=== PATIENT | female | born 1950 | race Caucasian/White ===

== ENCOUNTER 2018-06-09 10:13 | Inpatient (IN) | payer MEDICARE, OTHER ==
[~2018-06-09] VITALS: Ht 172.7 cm; Wt 137.0 kg
--- NOTE | ~2018-06-09 | EC ---
PATIENT:MARYJANE LAW DATE OF SERVICE: 06/09/18 SEX: F MEDICAL RECORD: [id number] DATE OF : [birth year] LOCATION:D.M2 D.212 AGE OF PATIENT: 67 ADMISSION DATE: 06/09/18 REFERRING PHYSICIAN: INTERPRETING PHYSICIAN: DUKE VELÁSQUEZ MD ECHOCARDIOGRAM REPORT ECHO CHARGES 4 ECHO COMPLETE Date: 06/10/18 CLINICAL DIAGNOSIS: SOB ECHOCARDIOGRAPHIC MEASUREMENTS (adult normal given) AC root (d.<3.7cm) 3.2 cm LV Septum d (<1.2 cm> 1.3 cm Valve Excursion 1.7 cm LV Septum (systole) 2.1 cm Left Atria (s.<4.0cm> 3.4 cm LVPW d(<1.2cm) 1.4 cm RV (d.<2.3cm) 2.3 cm LVPW (sytole) 2.3 cm LV diastole(<5.6CM) 5.2 cm MV E-F(>70mm/sec) cm LV systole 3.4 cm LVOT Diameter 2.0 cm MV exc.(>10mm) cm Est.ejection fraction (50-75%) % DOPPLER: LVIT cm/sec A 166 cm/sec E 137 cm/sec LA cm/sec RVSP 39.0 mmHg LVOT 150 cm/sec AOP1/2T m/s Asc. Ao 207 cm/sec RVOT 87.0 cm/sec RA cm/sec PA 107 cm/sec AV Gradient Peak 17.1 mmHg AV Mean 8.2 mmHg AV Area 2.3 cm MV Gradient Peak 14.2 mmHg MV Mean 5.4 mmHg MV Area cm COMMENTS: Knot Bumper: Dioni SMITHOE Carpet Installation Specialist: 1 Dr. Velásquez TAPE# PACS Pericardial Effusion N DATE OF SERVICE: 06/10/2018 PROCEDURE: Echocardiogram. FINDINGS: 1. Left ventricular chamber size is within normal limits. Left ventricular systolic function is normal. Overall ejection fraction estimated at 55%. 2. Left atrium, right atrium, and right ventricle chamber sizes are within normal limits. 3. Valvular structures have normal structure and motion. ECHOCARDIOGRAM REPORT [id number] MARYJANE LAW 4. Doppler interrogation reveals only trace tricuspid regurgitation, no other valvular insufficiency or stenosis. Pulmonary systolic pressure is estimated 39 mmHg. 5. No evidence of pericardial effusion or left ventricular thrombus. TRANSINT:[id number] Voice Confirmation ID: [id number] DOCUMENT ID: [id number] DUKE VELÁSQUEZ MD at 1616 CC: [id number] DICTATION DATE: 06/10/18 1257 BOXER OPERATOR: 06/10/18 1304 ADM IN [facility] [address] [place] [address]
--- NOTE | ~2018-06-09 | CN ---
PATIENT NAME:MARYJANE LAW MEDICAL RECORD: [id number] : 48 LOCATION:. D.2128 ADMIT DATE: 06/09/18 ACCOUNT: [id number] CONSULTING PHYSICIAN: DUKE SCHAEFFER MD REFERRING PHYSICIAN: LUIZ GUTIERREZ MD DATE OF CONSULTATION: 06/10/2018 CARDIOLOGY CONSULTATION DIAGNOSES: 1. Non-Q-wave myocardial infarction. 2. Shortness of breath, dyspnea on exertion. 3. Diabetes. 4. Hypertension. 5. Hyperlipidemia. 6. Pneumonia. HISTORY OF PRESENT ILLNESS: Ms. Law presents with shortness of breath, dyspnea on exertion, really only for the past 1-2 days prior to admission, but her troponin is positive. She has been having some chest pain. She is a longstanding diabetic of 30 years. She has hypertension and hyperlipidemia. She was diagnosed with pneumonia, is being treated for pneumonia. PHYSICAL EXAMINATION: GENERAL APPEARANCE: Well-nourished, well-developed, appears stated age. Level of distress, comfortable. PSYCHIATRIC: Mental status, alert, normal affect. Orientation, oriented to time, place and person. EYES: Lids and conjunctiva, noninjected. No discharge, no pallor. ENT: Lips, teeth, gums, normal dentition. Oropharynx, no cyanosis, no pallor. NECK: Carotid arteries, bilateral normal upstroke, no bruits, no thrills. JUGULAR VEINS: No jugular venous pressure or distention. CERVICAL LYMPH NODES: Nontender, nonenlarged. THYROID: Not enlarged. Nontender. No nodules. LUNGS: Respiratory effort, unlabored. CHEST: Normal curvature. No thoracic deformity. No chest wall tenderness. Percussion, resonant. Auscultation, clear. No wheezes, no rales, no rhonchi. CARDIOVASCULAR: Precordial exam, nondisplaced. No heaves or pericardial thrills. Rate and rhythm, regular. Heart sounds, normal S1, normal S2. No S3, no gallop, no rub. Systolic murmur, not heard. Diastolic murmur, not heard. EXTREMITIES: No cyanosis, no edema. Peripheral pulses, full and equal in all extremities, except as noted. No bruits appreciated. ABDOMEN: Soft, nondistended. Normal aorta. No bruit. Nontender. No masses. Liver, nontender, no hepatomegaly. Spleen, nontender, no splenomegaly. MUSCULOSKELETAL: No joint tenderness. No joint swelling. No erythema. NEUROLOGICAL: Normal gait, normal strength, normal tone. SKIN: Warm and dry. REVIEW OF SYSTEMS: The patient reports easy bruising but reports no swollen glands. The patient reports no fever, no night sweats, no significant weight gain, no significant weight loss. No significant exercise tolerance. The patient reports no dry eyes, no irritation, no vision change. Patient reports no difficulty hearing and no ear pain. Patient reports no frequent nose bleeds or nose and sinus problems. Patient reports on arm pain on exertion. No shortness of breath while lying down. No history of heart murmur. Patient CONSULT REPORT [id number] MARYJANE LAW reports no cough, no wheezing or coughing up blood. Patient reports no abdominal pain, no vomiting. Normal appetite. No diarrhea and not vomiting blood. No nausea and no constipation. Patient reports no incontinence. No difficulty urinating. No hematuria. No increased frequency. Patient reports no muscle aches. No weakness, no arthralgias, no back pain. No swelling of the extremities. Patient reports no abnormal mole, no jaundice, no rashes. Reports no loss of consciousness. No weakness and no numbness. No seizures, dizziness, or headaches. The patient reports no depression, no sleep disturbance, feeling safe in a relationship and no alcohol abuse. Patient reports on fatigue. Reports no runny nose or sinus pressure. No itching, no hives, and no frequent sneezing. OVERALL IMPRESSION: Non-Q-wave myocardial infarction. With her risk factors, most likely she has hemodynamically significant coronary artery disease. She had an echocardiogram, which shows a normal ejection fraction. Her hyperlipidemia is under control with Crestor. She is on valsartan for blood pressure; however, remains tachycardic. Her blood pressure is overall under good control. We will add Lopressor, decreasing her valsartan and proceed with coronary angiography prior to hospital discharge. Further care depends upon the findings of the angiography. TRANSINT:[id number] Voice Confirmation ID: [id number] DOCUMENT ID: [id number] DUKE SCHAEFFER MD at 1616 CC: [id number] DICTATION DATE: 06/10/18 3893 NITRIC ACID CONCENTRATOR OPERATOR: 06/10/18 1512 ADM IN [place] [id number] [place] [address]
--- NOTE | ~2018-06-09 | HEMODYNAMI ---
PATIENT:MARYJANE LAW MEDICAL RECORD: [id number] : 48 LOCATION:[facility] D2128 ADMISSION DATE: 06/09/18 Generatedon:06/13/20189:08 Patient name: MARYJANE LAW Patient #: [id number] SSN: DO B: 1950 Date of study: 06/13/2018 Page: Of Hemodynamic Procedure Report Patient Data Patient Demographics Procedure consent was obtained First Name: MARYJANE Gender: Female Last Name: ANI : 1950 Patient #: [id number] Age: 67 year(s) Race: Unknown Additional ID: [id number] Contact details Address: [address] [place] [address] [address] State: [place] City: [facility] Zip code: [address] Admission Admission Data Admission Date: 06/09/2018 Admission Time: 16:08 Room #: D.2128 Procedure Procedure Types Cath Procedure Diagnostic Procedure LHC LHC w/Coronaries Procedure Description Procedure Date Procedure Date: 06/13/2018 Procedure Start Time: 8:57 Procedure End Time: 9:04 Procedure Staff Name Function Enrique Velásquez MD Performing Physician Carey Sandy RT Monitor Avelino Wolff RN Nurse Lisa Angel RT Scrub Procedure Data Cath Procedure Fluoroscopy Diagnostic fluoroscopy Total fluoroscopy Time: 1.3 time: 1.3 min min Diagnostic fluoroscopy Total fluoroscopy dose: 610 dose: 610 mGy mGy Contrast Material Contrast Material Type Amount (ml) Isovue 300 42 Entry Location Entry Primary Successful Side Size Upsize Upsize Entry Closure Underwood ccessful Closure Location (Fr) 1 (Fr) 2 (Fr) Remarks Device Remarks Radial Right 6 Fr Mechanical artery Short Compression Estimated blood loss: 5 ml Diagnostic catheters Device Type Used For End Catheter Placement DIAGNOSTIC [place] 110cm 5 Multi-vessel Fr catheter ([id number]) Angiography Procedure Complications No complications Procedure Medications Medication Administration Route Dosage Oxygen etCO2 Nasal cannula 2 l/min Heparin Flush Bag added to field 2 bags (1000units/500ml NS) 0.9% NaCl I.V. 100 ml/hr Radial Cocktail added to field 1 syringe (Verapomil 2mg/Nitro 400mcg/Heparin 1500units) Fentanyl I.V. 50 mcg Versed I.V. 1 mg Fentanyl I.V. 50 mcg Versed I.V. 1 mg Radial Cocktail I.A. 1 syringe (Verapomil 2mg/Nitro 400mcg/Heparin 1500units) Hemodynamics Rest Heart Rate: 61 (bpm) Pressure Samples Time Site Value (mmHg) Purpose Heart Use Rate(bpm) 9:00 LV 33/20,30 Snapshot 69 Snapshots Pre Cath Intra NCS Post Cath Vital Signs Time Heart Resp SPO2 etCO2 NIBP (mmHg) Rhythm Pain Sedation Rate (ipm) (%) (mmHg) Status Level (bpm) 8:48:48 62 18 96 32.9 86/50(75) NSR 0 (11) 10(A) , No pain 8:52:45 61 18 96 30.6 104/74(97) NSR 0 (11) 10(A) , No pain 8:57:48 61 18 95 32.9 161/67(126) NSR 0 (11) 10(A) , No pain 9:02:08 67 17 95 34.4 144/68(88) NSR 0 (11) 10(A) , No pain 9:06:45 61 21 92 34.4 142/63(104) NSR 0 (11) 10(A) , No pain Medications Time Medication Route Dose Verified Delivered Reason Notes Effectiveness by by 8:47:55 Oxygen etCO2 2 l/min Enrique You Per Nasal Didier Wolff RN physician cannula 8:48:04 Heparin Flush added 2 bags Enrique You used for Bag to Didier Wolff RN procedure (1000units/500ml field NS) 8:48:12 0.9% NaCl I.V. 100 Enrique You Per ml/hr Didier Wolff RN physician 8:48:20 Radial Cocktail added 1 Enrique You used for (Verapomil to syringe Didier Wolff RN procedure 2mg/Nitro field 400mcg/Heparin 1500units) 8:52:17 Fentanyl I.V. 50 mcg Enrique You for sedation Didier Wolff RN 8:52:23 Versed I.V. 1 mg Enrique You for sedation Didier Wolff RN 9:00:16 Fentanyl I.V. 50 mcg Enrique You for sedation Didier Wolff RN 9:00:20 Versed I.V. 1 mg Enrique You for sedation Didier Wolff RN 9:02:26 Radial Cocktail I.A. 1 Enrique Nunez for (Verapomil syringe Didier Velásquez MD vasodilation 2mg/Nitro 400mcg/Heparin 1500units) Procedure Log Time Note 8:20:39 Carey Sandy RT(R) sent for patient. Start room use. 8:35:38 Diagnostic Cath status Elective 8:35:41 Time tracking: Regular hours (M-F 7:00 - 5:00) 8:35:47 Plan of Care:Hemodynamics will remain stable., Cardiac rhythm will remain stable., Comfort level will be maintained., Respiratory function will remain adequate., Patient/ family verbilizes understanding of procedure., Procedure tolerated without complication., Recovers from procedure without complications.. 8:36:01 Patient received from Med II to CCL 2 Alert and oriented. Tansferred to table in Supine position. 8:36:11 Warm blankets applied, and marie hugger turned on for patient comfort. 8:36:20 Correct patient and procedure confirmed by team. 8:36:29 H&P Date Dictated: 06/12/2018 Within 30 days and on chart., H&P Addendum completed by physician on day of procedure. (MUST COMPLETE FOR ALL OUTPATIENTS). 8:36:31 Pre-procedure instructions explained to patient. 8:36:35 Family in patients room. 8:36:37 Patient NPO since Midnight. 8:47:36 Snore? Yes 8:47:37 Sleep apnea? No 8:47:38 Vital chart was started 8:47:41 Patient diabetic? Yes. 8:47:46 If diabetic: On Metformin? Yes 8:47:48 If on Metformin: Last Dose? 06/10/2018 8:47:52 Deviated septum? No 8:47:52 Opens mouth fully? Yes 8:47:53 Sticks out tongue? Yes 8:47:55 Oxygen 2 l/min etCO2 Nasal cannula was administered by Avelino Wolff RN; Per physician; 8:47:55 Airway obstruction? No ? 8:47:58 Dentures? Yes in 8:48:04 Heparin Flush Bag (1000units/500ml NS) 2 bags added to field was administered by Avelino Wolff RN; used for procedure; 8:48:12 0.9% NaCl 100 ml/hr I.V. was administered by Avelino Wolff RN; Per physician; 8:48:20 Radial Cocktail (Verapomil 2mg/Nitro 400mcg/Heparin 1500units) 1 syringe added to field was administered by Avelino Wolff RN; used for procedure; 8:49:38 Pre procedure: right dorsailis pedis pulse 1+ Palpable, but thready & weak; easily obliterated 8:49:41 Modified Dom's test Ulnar < 7 seconds 8:49:43 Patient pain scale 0/10 ?. 8:49:53 IV patent on arrival in right hand with 0.9% NaCl at O. 8:49:56 Lab results completed and on chart. 8:50:00 Right Radial & Right Groin area was prepped with chlora-prep and draped in sterile fashion 8:50:01 Alarms reviewed by R. N. 8:50:02 Sharps counted by scrub and verified by R.N. 8:50:06 Signed procedure consent form obtained from patient. 8:50:08 ECG and BP/O2 sat monitors applied to patient. 8:50:13 Rhythm: sinus rhythm 8:50:14 Full Disclosure recording started 8:50:19 Is patient on blood thinner?No 8:51:57 --------ALL STOP TIME OUT------ 8:51:57 Final Timeout: patient, procedure, and site verified with staff and physician. All members of the team are in agreement. 8:51:59 Right Radial & Right Groin site verified by team. 8:52:02 Physical assessment completed. ASA score P 2 - A patient with mild systemic disease as per Enrique Velásquez MD. 8:52:05 Sedation plan: IV Moderate Sedation Medication:Versed, Fentanyl 8:52:12 Use device set Radial Dx or PCI 8:52:16 Tegaderm 4 x 4 (1626W) opened to sterile field. 8:52:17 Fentanyl 50 mcg I.V. was administered by Avelino Wolff RN; for sedation; 8:52:17 ACIST Manifold (40156) opened to sterile field. 8:52:19 ACIST Hand Control (64589) opened to sterile field. 8:52:22 ACIST Syringe (92718) opened to sterile field. 8:52:22 Medline Cath Pack ([id number]) opened to sterile field. 8:52:23 Versed 1 mg I.V. was administered by Avelino Wolff RN; for sedation; 8:52:23 Bag Decanter (2002S) opened to sterile field. 8:52:23 DIAGNOSTIC WIRE .035 260cm J wire (996325) opened to sterile field. 8:52:24 MBrace Wrist Support ([id number]) opened to sterile field. 8:52:28 SHEATH 6Fr Prelude Radial ([id number]) opened to sterile field. 8:57:02 Procedure started. 8:57:07 Local anesthetic to right radial artery with Lidocaine 2% by Enrique Velásquez MD.INITIAL ACCESS ONLY 8:57:31 A 6 Fr Short sheath was inserted into the Right Radial artery 8:57:53 Baseline sample Acquired. 8:59:02 A DIAGNOSTIC [place] 110cm 5 Fr catheter (606842) was advanced over the wire and used for Multi-vessel Angiography. 9:00:16 Fentanyl 50 mcg I.V. was administered by Avelino Wolff RN; for sedation; 9:00:20 Versed 1 mg I.V. was administered by Avelino Wolff RN; for sedation; 9:00:53 LV hemodynamics recorded. 9:00:59 LV gram done using IKRK 9:01:02 Injector settings: Ml/sec: 5, Volume: 15, 9:01:07 EF : 55 % 9:01:16 LCA angiography performed. 9:01:43 Injector settings: Ml/sec: 3, Volume: 6, 9:02:26 Radial Cocktail (Verapomil 2mg/Nitro 400mcg/Heparin 1500units) 1 syringe I.A. was administered by Enrique Velásquez MD; for vasodilation; 9:02:54 RCA angiography performed. 9:02:57 Injector settings: Ml/sec: 3, Volume: 6, 9:03:12 Catheter removed. 9:03:25 Sheath removed intact; hemostasis achieved with Mechanical Compression to the Right Radial artery. 9:03:27 Procedure ended.(Physican Out) 9:03:46 Fluoroscopy time 01.30 minutes. 9:03:50 Fluoroscopy dose: 610 mGy 9:03:50 Flurop Dose total: 610 9:03:54 Contrast amount:Isovue 300 42ml. 9:03:55 Sharps counted by scrub and verified by R.N. 9:03:58 TR band inflated with 10cc of air. 9:03:59 Insertion/operative site no bleeding no hematoma. 9:04:05 Post right radial artery:stable 9:04:06 Post Procedure Pulses reassessed and unchanged 9:04:09 Post procedure rhythm: unchanged. 9:04:11 Estimated blood loss: 5 ml 9:04:12 Post procedure instruction explained to patient.Patient verbalizes understanding. 9:04:13 Patient needs reinforcement of post procedure teaching. 9:04:23 Procedure type changed to Cath procedure, Diagnostic procedure, LHC, LHC w/Coronaries 9:04:23 Procedure and supply charges have been captured, reviewed, submitted and are correct. 9:04:27 Procedure Complication : No complications 9:04:29 Vital chart was stopped 9:04:30 See physician's report for complete and final results. 9:04:39 Report given to Med II. 9:04:41 Patient transfered to Med II with Stretcher. 9:04:44 Procedure ended. 9:04:44 Full Disclosure recording stopped 9:04:48 End room use (Document Last) 9:05:03 TR BAND Large ([id number]) opened to sterile field. Device Usage Item Name Manufacture Quantity Catalog Number Hospital Part Current M inimal Lot# / Charge Number Stock Stock Serial# Code Tegaderm 4 x 4 3M 1 [id number] [id number] 5 (1626W) ACIST Manifold Acist 1 43578 565202 755675 169581 5 (94098) [employer] ACIST Hand Acist 1 17783 693291 240501 303707 5 Control (88213) [employer] ACIST Syringe Acist 1 78584 437556 847968 215499 2 0 (11880) [employer] Inc Medline Cath Cardinal 1 [id number] 043313 [address] [facility] ([id number]) Bag Decanter Microtek 1 877589 33967 996382 5 () Medical Inc. DIAGNOSTIC WIRE [facility] [place] 1 592638 803207 694764 078796 3 0 .035 260cm J wire (592794) MBrace Wrist Advanced 1 140-0250-00 794471 16424 040582 5 Support Vascular ([id number]) Dynamics SHEATH 6Fr Merit 1 [id number] 095588 897770 354054 5 Prelude Radial Medical ([id number]) DIAGNOSTIC Terumo 1 40-2939 517256 512306 772689 5 [place] 110cm 5 Fr catheter (751034) TR BAND Large Terumo 1 [id number] 574671 605317 534943 4 0 ([id number]) Signature Audit Bellona Stage Time Signature Unsigned Intra-Procedure 06/13/2018 Carey Sandy 9:07:56 AM RT(R) Signatures Monitor : Carey Sandy RT Signature : Date : Time : [place] [id number] [facility] [place] [address]
--- NOTE | ~2018-06-09 | OP ---
PATIENT NAME: MARYJANE LAW MEDICAL RECORD: [id number] :48 LOCATION:D.M2 D.2128 ADMISSION DATE:06/09/18 SURGEON: DUKE SCHAEFFER MD DATE OF OPERATION: 06/13/2018 DATE OF SERVICE: 06/13/2018 PROCEDURES: 1. Left heart catheterization. 2. Selective coronary angiography. 3. Left ventriculogram. INDICATION: Increased troponin. PROCEDURE IN DETAIL: After informed consent was obtained and after a detailed description of the risks, benefits as well as alternative therapies, the patient elected to proceed with angiogram and heart catheterization. The right radial area was prepped and draped in normal sterile fashion. Right radial artery was cannulated via modified Seldinger technique with placement of 5-Chilean sheath. All catheters exchanged through this sheath. FINDINGS: The left ventriculogram was performed in standard 30-degree KIRK view, reveals good cardiac wall motion throughout all segments. Overall ejection fraction estimated at 60%. SELECTIVE CORONARY ANGIOGRAPHY: Left main, left anterior descending, left circumflex, right coronary artery are all smooth-walled vessels with no angiographic evidence of coronary artery disease. OVERALL IMPRESSION: 1. No angiographic evidence of coronary artery disease. 2. Normal left ventricular function. Her increased troponin was secondary to demand ischemia from the pneumonia and no coronary artery disease is present. No other cardiac workup or treatment is necessary. TRANSINT:[id number] Voice Confirmation ID: [id number] DOCUMENT ID: [id number] DUKE SCHAEFFER MD at 1823 CC: [id number] DICTATION DATE: 06/13/18904 REWARDS CONSULTANT: 06/13/18 0952 DIS IN 06/14/18 [place] [address]
[2018-06-09] MEDS ORDERED: NASCOBAL1 EACH NASAL (10:17)
[2018-06-09] MEDS ORDERED: LOZOL 2.5 MG T2.5 MG PO (10:18)
[2018-06-09] MEDS ORDERED: DIOVAN320 MG PO (10:19)
[2018-06-09] MEDS ORDERED: METFORMIN PO (10:20)
[2018-06-09] MEDS ORDERED: PIOGLITAZONE PO (10:20)
[2018-06-09] MEDS ORDERED: CRESTOR5 MG PO (10:20)
[2018-06-09 11:04] LABS: BASOPHILS 0.1 % (0-2); EOSINOPHILS 0 % (0-7); HEMATOCRIT 32.1 % (36.0-48.0); HEMOGLOBIN 10.7 g/dL (12-16); IMMATURE GRANULOCYTES 0.2 % (0-5); LYMPHOCYTES 6.2 % (15-50); MCH 28.6 pg (26.0-34.0); MCHC 33.3 g/dL (31.0-37.0); MCV 85.8 fL (80.0-100.0); MEAN PLATELET VOLUME 10.9 fL (7.4-10.4); MONOCYTES 3.8 % (2-11); NEUTROPHILS 89.7 % (40-80); PLATELET COUNT 220 10x3/uL (130-400); RBC 3.74 10x6/uL (4.00-5.40); RDW 14.4 % (11.5-14.5); WBC 8.2 10x3/uL (4.8-10.8)
[2018-06-09 11:25] LABS: ALBUMIN 2.9 g/dL (3.4-5.0); ANION GAP 13.3 mmol/L (8-16); BILIRUBIN - TOTAL 0.42 mg/dL (0.2-1.3); CARBON DIOXIDE 25.8 mmol/L (21.0-32.0); CREATININE - SERUM 1.6 mg/dL (0.6-1.3); POTASSIUM - SERUM 3.1 mmol/L (3.5-5.1); PROTEIN - SERUM 7.3 g/dL (6.4-8.2)
[2018-06-09 13:16] VITALS: BP 125/93
[2018-06-09 15:29] LABS: APPEARANCE HAZY (CLEAR); BILIRUBIN NEGATIVE (NEGATIVE); COLOR YELLOW (YELLOW); GLUCOSE NEGATIVE (NEGATIVE); KETONE NEGATIVE (NEGATIVE); NITRITE NEGATIVE (NEGATIVE); PROTEIN 1+ mg/dL (NEGATIVE); UROBILINOGEN NORMAL (NORMAL)
[2018-06-09 15:30] VITALS: BP 159/61
[2018-06-09 15:30] LABS: BACTERIA MODERATE /hpf (NONE SEEN); EPITHELIAL CELLS 0-5 /hpf (0-5); MUCUS <1+ /lpf (NONE SEEN); RED CELLS - URINE 0-5 /hpf (0-5); WHITE CELLS - URINE 0-5 /hpf (0-5)
[2018-06-09 16:34] LABS: CKMB 5.4 U/L (0.0-3.6)
[2018-06-09 16:35] LABS: CREATINE KINASE 2525 UL (21-215)
[2018-06-09 16:41] LABS: TROPONIN-I 0.072 ng/mL (0.000-0.060)
[2018-06-09 17:20] VITALS: BP 166/55
[2018-06-09 18:25] VITALS: BP 142/45
[2018-06-09 22:18] LABS: CKMB 4.7 U/L (0.0-3.6)
[2018-06-09 22:27] LABS: CREATINE KINASE 2310 UL (21-215)
[2018-06-09 22:28] LABS: TROPONIN-I 0.087 ng/mL (0.000-0.060)
[2018-06-10] VITALS (7 sets, daily range): BP systolic 103–145; BP diastolic 46–69; BMI 44.1
[2018-06-10 05:40] LABS: BASOPHILS 0.2 % (0-2); EOSINOPHILS 0 % (0-7); HEMATOCRIT 28.1 % (36.0-48.0); HEMOGLOBIN 9.4 g/dL (12-16); IMMATURE GRANULOCYTES 0.3 % (0-5); LYMPHOCYTES 7.9 % (15-50); MCH 28.3 pg (26.0-34.0); MCHC 33.5 g/dL (31.0-37.0); MCV 84.6 fL (80.0-100.0); MEAN PLATELET VOLUME 10.9 fL (7.4-10.4); NEUTROPHILS 85.6 % (40-80); PLATELET COUNT 184 10x3/uL (130-400); RBC 3.32 10x6/uL (4.00-5.40); RDW 14.6 % (11.5-14.5)
[2018-06-10 06:40] LABS: CALCIUM 8.6 mg/dL (8.5-10.1); CARBON DIOXIDE 24.1 mmol/L (21.0-32.0); CHLORIDE - SERUM 96 mmol/L (98-107); CKMB 4.2 U/L (0.0-3.6); CREATININE - SERUM 1.2 mg/dL (0.6-1.3); POTASSIUM - SERUM 3.2 mmol/L (3.5-5.1); SODIUM 131 mmol/L (136-145); UREA NITROGEN 25 mg/dL (7-18); eGFR NON AFRICAN AMERICAN 47 mL/min (90-120)
[2018-06-10 06:41] LABS: CALC OSMOLALITY 269 mosm/kg (275-300); CREATINE KINASE 2568 UL (21-215); GLUCOSE 145 mg/dL (74-106); TROPONIN-I 0.076 ng/mL (0.000-0.060)
[2018-06-11 01:32] VITALS: BP 126/50
[2018-06-11 05:48] VITALS: BP 102/76
[2018-06-11 12:18] LABS: BASOPHILS 0.3 % (0-2); EOSINOPHILS 0.8 % (0-7); HEMATOCRIT 30.2 % (36.0-48.0); IMMATURE GRANULOCYTES 0.7 % (0-5); LYMPHOCYTES 13.3 % (15-50); MCH 28.6 pg (26.0-34.0); MCHC 33.1 g/dL (31.0-37.0); MCV 86.3 fL (80.0-100.0); MEAN PLATELET VOLUME 11.6 fL (7.4-10.4); MONOCYTES 8.8 % (2-11); NEUTROPHILS 76.1 % (40-80); RDW 15.2 % (11.5-14.5); WBC 6.1 10x3/uL (4.8-10.8)
[2018-06-11 12:20] LABS: PLATELET COUNT 271 10x3/uL (130-400)
[2018-06-11 12:37] LABS: ALBUMIN 2.6 g/dL (3.4-5.0); ANION GAP 15.2 mmol/L (8-16); BILIRUBIN - TOTAL 0.34 mg/dL (0.2-1.3); CARBON DIOXIDE 25.6 mmol/L (21.0-32.0); CREATININE - SERUM 1.4 mg/dL (0.6-1.3); MAGNESIUM - SERUM 1.8 mg/dL (1.8-2.4); POTASSIUM - SERUM 3.8 mmol/L (3.5-5.1)
[2018-06-11 21:20] VITALS: BP 129/99
[2018-06-12 05:59] VITALS: BP 145/73
[2018-06-12 07:36] LABS: BASOPHILS 0.1 % (0-2); EOSINOPHILS 0.4 % (0-7); HEMOGLOBIN 9.1 g/dL (12-16); IMMATURE GRANULOCYTES 0.6 % (0-5); LYMPHOCYTES 8.9 % (15-50); MCH 27.7 pg (26.0-34.0); MCHC 32.5 g/dL (31.0-37.0); MCV 85.4 fL (80.0-100.0); MEAN PLATELET VOLUME 10.8 fL (7.4-10.4); MONOCYTES 10.2 % (2-11); NEUTROPHILS 79.8 % (40-80); PLATELET COUNT 259 10x3/uL (130-400); RBC 3.28 10x6/uL (4.00-5.40); WBC 7.2 10x3/uL (4.8-10.8)
[2018-06-12 07:59] LABS: ALBUMIN 2.3 g/dL (3.4-5.0); ANION GAP 13.6 mmol/L (8-16); BILIRUBIN - TOTAL 0.38 mg/dL (0.2-1.3); CALCIUM 8.8 mg/dL (8.5-10.1); CARBON DIOXIDE 25.9 mmol/L (21.0-32.0); CREATININE - SERUM 1.3 mg/dL (0.6-1.3); MAGNESIUM - SERUM 1.9 mg/dL (1.8-2.4); POTASSIUM - SERUM 3.5 mmol/L (3.5-5.1); PROTEIN - SERUM 6.7 g/dL (6.4-8.2)
[2018-06-12 21:04] VITALS: BP 124/43
[2018-06-13 01:13] VITALS: BP 117/49
[2018-06-13 04:59] LABS: BASOPHILS 0.2 % (0-2); EOSINOPHILS 1.6 % (0-7); IMMATURE GRANULOCYTES 1.1 % (0-5); LYMPHOCYTES 12.4 % (15-50); MCH 27.5 pg (26.0-34.0); MCV 85.9 fL (80.0-100.0); MEAN PLATELET VOLUME 10.6 fL (7.4-10.4); MONOCYTES 10.6 % (2-11); NEUTROPHILS 74.1 % (40-80); PLATELET COUNT 253 10x3/uL (130-400); RBC 2.91 10x6/uL (4.00-5.40); WBC 6.3 10x3/uL (4.8-10.8)
[2018-06-13 05:15] LABS: ANION GAP 12.9 mmol/L (8-16); BILIRUBIN - TOTAL 0.29 mg/dL (0.2-1.3); CALCIUM 8.6 mg/dL (8.5-10.1); CARBON DIOXIDE 26.9 mmol/L (21.0-32.0); CREATININE - SERUM 1.2 mg/dL (0.6-1.3); MAGNESIUM - SERUM 1.9 mg/dL (1.8-2.4); POTASSIUM - SERUM 3.8 mmol/L (3.5-5.1); PROTEIN - SERUM 5.8 g/dL (6.4-8.2)
[2018-06-13 06:12] VITALS: BP 132/78
[2018-06-13 07:55] VITALS: BP 139/54
[2018-06-13 11:55] VITALS: BP 154/55
[2018-06-13] MEDS ORDERED: HCTZ PO (15:40)
[2018-06-13] MEDS ORDERED: VALSART PO (15:40)
[2018-06-13 16:29] VITALS: BP 106/84
[2018-06-13 20:00] VITALS: BP 120/49
[2018-06-14 04:00] VITALS: BP 130/55
[2018-06-14 05:32] LABS: BASOPHILS 0.4 % (0-2); EOSINOPHILS 3.6 % (0-7); HEMATOCRIT 27.2 % (36.0-48.0); HEMOGLOBIN 8.7 g/dL (12-16); IMMATURE GRANULOCYTES 2.7 % (0-5); LYMPHOCYTES 12.6 % (15-50); MCH 27.6 pg (26.0-34.0); MCV 86.3 fL (80.0-100.0); MEAN PLATELET VOLUME 10.7 fL (7.4-10.4); MONOCYTES 7.8 % (2-11); NEUTROPHILS 72.9 % (40-80); RBC 3.15 10x6/uL (4.00-5.40); RDW 15.2 % (11.5-14.5)
[2018-06-14 05:50] LABS: PLATELET COUNT 353 10x3/uL (130-400); WBC 8.2 10x3/uL (4.8-10.8)
[2018-06-14 06:23] LABS: ALBUMIN 2.1 g/dL (3.4-5.0); ANION GAP 13.4 mmol/L (8-16); BILIRUBIN - TOTAL 0.26 mg/dL (0.2-1.3); CALCIUM 8.9 mg/dL (8.5-10.1); CARBON DIOXIDE 27.1 mmol/L (21.0-32.0); CREATININE - SERUM 1.1 mg/dL (0.6-1.3); MAGNESIUM - SERUM 1.9 mg/dL (1.8-2.4); POTASSIUM - SERUM 3.5 mmol/L (3.5-5.1); PROTEIN - SERUM 6.1 g/dL (6.4-8.2)
[2018-06-14 08:03] VITALS: BP 144/48
[2018-06-14 10:29] VITALS: Ht 172.7 cm; Wt 137.0 kg
[2018-06-14] MEDS ORDERED: LEVAQUIN750 MG PO (11:57)
[2018-06-14 11:58] VITALS: BP 131/64
[2018-06-14] MEDS ORDERED: METOPROLOL TART50 MG PO (11:58)
[2018-06-14] MEDS ORDERED: DIOVAN80 MG PO (11:58)
[2018-06-14] MEDS ORDERED: PLAVIX75 MG PO (11:58)
[2018-06-14 16:13] VITALS: BP 129/49
== END 2018-06-14 16:39 | disposition home or self-care (01) | DRG 280 ==
LOC: D.ER 10:13 → D.EDHOLD 16:08 → D.M2 16:08
PROVIDERS: Family Medicine; Internal Medicine Interventional Cardiology
PROC: B2151ZZ Fluoroscopy of Left Heart using Low Osmolar Contrast (ICD-10-PCS; 2018-06-13)
PROC: 4A023N7 Measurement of Cardiac Sampling and Pressure, Left Heart, Percutaneous Approach (ICD-10-PCS; 2018-06-13)
PROC: B2111ZZ Fluoroscopy of Multiple Coronary Arteries using Low Osmolar Contrast (ICD-10-PCS; principal; 2018-06-13 11:45)
DX: I21.A1 Myocardial infarction type 2 (principal); J18.9 Pneumonia, unspecified organism; Z68.41 Body mass index [BMI] 40.0-44.9, adult; E66.9 Obesity, unspecified; M19.90 Unspecified osteoarthritis, unspecified site; E11.9 Type 2 diabetes mellitus without complications; I10 Essential (primary) hypertension; E78.5 Hyperlipidemia, unspecified; R00.0 Tachycardia, unspecified